=== PATIENT | female | born 1990 | race Asian ===

== ENCOUNTER 2019-09-13 16:56 | Emergency (ER) | payer OTHER ==
[~2019-09-13] VITALS: Ht 152.4 cm; Wt 48.5 kg
[2019-09-13 17:19] VITALS: BP 116/74
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
--- NOTE | 2019-09-13 17:27 | NUR ---
DR HUDSON AT BEDSIDE EXAMINING PT
[2019-09-13] MEDS ORDERED: ACETAMINOPHEN EXTRA STRENGTH 500 MG TAB PO ONE (17:40)
--- NOTE | 2019-09-13 17:48 | NUR ---
LAB AT BEDSIDE
--- NOTE | 2019-09-13 17:48 | NUR ---
COVID-19 SWAB COLLECTED AND GIVEN TO LAB.
[2019-09-13 18:09] LABS: BASOPHILS # (AUTO) 0.1 K/uL (0.00-0.22); BASOPHILS % (AUTO) 1.3 % (0.0-2.0); EOSINOPHILS # (AUTO) 0.1 K/uL (0-0.4); HEMATOCRIT 35.3 % (36-48); HEMOGLOBIN 11.6 g/dL (12.0-16.0); LYMPHOCYTES # (AUTO) 2.3 K/uL (2.5-16.5); LYMPHOCYTES % (AUTO) 32.3 % (20.5-51.1); MEAN CORPUSCULAR HEMOGLOBIN 31 pg (27-31); MEAN CORPUSCULAR HGB CONC 33 g/dL (33-37); MEAN CORPUSCULAR VOLUME 94.8 fL (80-94); MONOCYTES # (AUTO) 0.6 K/uL (0.8-1.0); NEUTROPHILS # (AUTO) 3.9 K/uL (1.8-7.7); NEUTROPHILS % (AUTO) 55.4 % (42.2-75.2); PLATELET COUNT (AUTO) 218 K/uL (140-450); RED BLOOD CELL COUNT(AUTO) 3.73 MIL/uL (4.20-5.40); RED CELL DISTRIBUTION WIDTH 13.4 % (11.6-13.7); WHITE BLOOD COUNT (AUTO) 7.1 K/uL (4.8-10.8)
--- NOTE | 2019-09-13 18:09 | NUR ---
PT TO CT VIA [facility]
--- NOTE | 2019-09-13 18:30 | NUR ---
PT RETURNED FROM CT [facility]IA [facility]
[2019-09-13 18:49] LABS: ANION GAP 12.7 (8-16); CARBON DIOXIDE 27.9 mmol/L (21-32); CREATININE 0.8 mg/dL (0.6-1.3); POTASSIUM 3.6 mmol/L (3.5-5.1)
[2019-09-13 19:15] VITALS: BP 121/77
--- NOTE | 2019-09-13 19:15 | NUR ---
Patient discharged with v/s stable. Written and verbal after care instructions given and explained. Patient verbalized understanding. Ambulatory with steady gait. All questions addressed prior to discharge. Advised to follow up with PMD.
== END 2019-09-13 19:15 | disposition home or self-care (01) ==
LOC: MED 16:56 → EEVIPCON 16:56 → MED 19:15
DX: M25.511 Pain in right shoulder (principal); M25.559 Pain in unspecified hip; R51 Headache; Z20.828 Contact with and (suspected) exposure to other viral communicable diseases; V89.2XXA Person injured in unspecified motor-vehicle accident, traffic, initial encounter; Y93.89 Activity, other specified; Y92.89 Other specified places as the place of occurrence of the external cause; Y99.8 Other external cause status
CPT/HCPCS: 70450; 73030; 73521; 80048; 81002; 81025; 85025; 99285; Q0092; U0003; C9803-CS